=== PATIENT | female | born 1990 | race African-American/Black ===

== ENCOUNTER 2016-12-03 19:01 | Emergency (ER) | payer SELFPAY ==
[~2016-12-03 19:01] MED LIST: ALBUTEROL17 GM INH; AMOXICILLIN500 M1 PO; DOXYCYCLINE HY100 M1 PO; FLAGYL PO; FLEXERIL10 MG PO; IBUPROFEN800 MG PO; NAPROSYN-EC500 MG PO; NO MEDICATIONS; PHENERGAN25 MG PO; PREDNISONE PO; VALTREX PO; ZOFRAN ODT4 MG PO
[2016-12-09] MEDS ORDERED: AMOXICILLIN500 M1 (09:14)
== END 2016-12-03 19:30 | disposition home or self-care (01) ==
LOC: SED 19:01
DX: J02.9 Acute pharyngitis, unspecified (principal); F17.200 Nicotine dependence, unspecified, uncomplicated
CPT/HCPCS: 87651; 87880; 99282

== ENCOUNTER 2017-06-28 16:27 | Emergency (ER) | payer BC ==
[~2017-06-28] VITALS: Ht 160 cm; Wt 104.3 kg
[~2017-06-28 16:27] MED LIST changes: +AMOXICILLIN500 M1
[2017-06-28] MEDS ORDERED: NO MEDICATIONS (16:40)
[2017-06-28 17:03] LABS: URINE APPEARANCE SL CLOUDY; URINE BLOOD NEG (NEG); URINE COLOR YELLOW; URINE GLUCOSE NEG (NORM); URINE KETONE TRACE (NEG); URINE LEUKOCYTE ESTERASE 2+ (NEG); URINE NITRATE NEG (NEG); URINE PROTEIN NEG (NEG); URINE SPECIFIC GRAVITY 1.025 (1.003-1.035); URINE UROBILINOGEN 0.2 MG/DL (NORM)
[2017-06-28 17:04] LABS: MICRO INDICATED? YES; URINE SOURCE CLEAN CATCH
[2017-06-28 17:05] LABS: URINE BILIRUBIN NEG (NEG)
[2017-06-28 17:08] LABS: CULTURE INDICATED? YES; URINE BACTERIA 1+ (NEG); URINE RBC 0-2 /[HPF] (0-2); URINE SQUAMOUS EPITHELIAL CELL FEW /[HPF]; URINE TRICHOMONAS PRESENT
[2017-07-01 10:42] LABS: CHLAMYDIA TRACH Not Detected (Not Detected); N GONOR Not Detected (Not Detected)
== END 2017-06-28 18:47 | disposition home or self-care (01) ==
LOC: SED 16:27
PROVIDERS: Nurse Practitioner
DX: A59.9 Trichomoniasis, unspecified (principal)
CPT/HCPCS: 81003; 87086; 87491; 87591; 87905; 99283